=== PATIENT | male | born 1965 | race Caucasian/White ===

== ENCOUNTER 2021-07-05 16:28 | Emergency (ER) | payer OTHER ==
[~2021-07-05] VITALS: Ht 182.9 cm; Wt 99.8 kg
[2021-07-05] MEDS ORDERED: HYDROcodone-ACET 5/325MG TAB PO ONE (18:00)
[2021-07-05 20:07] VITALS: BP 137/64
[2021-07-05 20:32] LABS: Urine Bacteria NONE SEEN /hpf (None Seen); Urine Blood 2+ /uL (Negative); Urine Mucus FEW (None Seen); Urine WBC 1 /hpf (0 - 3)
== END 2021-07-05 22:29 | disposition home or self-care (01) ==
LOC: ER 16:28
DX: N45.1 Epididymitis (principal); Z98.890 Other specified postprocedural states
CPT/HCPCS: 76870; 81001